=== PATIENT | male | born 1990 | race Caucasian/White ===

== ENCOUNTER 2024-09-05 18:09 | Emergency (ER) | payer OTHER, SELFPAY ==
[2024-09-05 18:35] VITALS: BP 135/88; PULSE 94; TEMP 36.7; O2SAT 99; BMI 24.2
--- NOTE | 2024-09-05 18:45 | XR_ITS ---
The [address] [address] Patient Name: PREETHI LAMAS MRN: [id number] date: 1990 Sex: M Assigned Patient Location: ER Current Patient Location: Accession/Order Number: [id number] Exam Date: 09/05/2024 19:04 Report Date: 09/05/2024 20:14 At the request of: CATALINA CLANCY Procedure: XR hand RT min 3V EXAM: XR hand RT min 3V HISTORY: laceration COMPARISON: None. TECHNIQUE: 3 views of the right hand were obtained. FINDINGS: There is no evidence of an acute fracture or dislocation. The joint spaces are intact. No focal osseous abnormality is identified. Some bandaging and soft tissue laceration is seen along the ulnar aspect of the proximal hand and between the fourth and fifth metacarpal bones. No radiopaque foreign body is identified other than a small amount of debris under the fingernail of the third digit. XR/XR hand RT min 3V IMPRESSION: No acute fracture or dislocation. No significant osseous abnormality. Soft tissue lacerations are seen along the ulnar aspect of the hand. No radiopaque foreign body is seen associated with these lacerations. Electronically authenticated by: SHAKA DAMON Date: 09/05/2024 20:14
--- NOTE | 2024-09-05 18:46 | PC.NURSE ---
Laceration to right hand, well approx. small amount of drainage. Area soaked in hibicleanse.
--- NOTE | 2024-09-05 18:48 | ED_ITS ---
HPI - Wound/Laceration General Chief Complaint: Wound/Laceration Stated Complaint: UE INJURY Time Seen by Provider: 09/05/24 18:42 Source: patient Mode of arrival: walk-in Limitations: no limitations History of Present Illness HPI narrative: Patient is a 34-year-old male who is right-hand dominant who presents to the emergency department for evaluation of a laceration over the dorsum of the right hand. This was sustained just prior to arrival when he was working on a car and dropped a car battery on the dorsum of the hand. Bleeding is well-controlled. No medications taken prior to arrival. He had no other associated injuries. Related Data Home Medications ?Medication ?Instructions ?Recorded ?Confirmed duloxetine 30 mg capsule,delayed 30 mg PO DAILY 09/05/24 09/05/24 release pregabalin 75 mg capsule 75 mg PO Q12H 09/05/24 09/05/24 Previous Rx's ?Medication ?Instructions ?Recorded cephalexin 500 mg capsule 500 mg PO TID 5 days #15 caps 09/05/24 ketorolac 10 mg tablet 10 mg PO TID PRN pain #10 tabs 09/05/24 Allergies Allergy/AdvReac Type Severity Reaction Status Date / Time No Known Drug Allergies Allergy Verified 09/05/24 18:31 Review of Systems ROS Constitutional Denies: fever or chills Ears, nose, mouth, and throat Denies: throat pain, nasal discharge or nasal congestion Respiratory Denies: shortness of breath Gastrointestinal Denies: nausea or vomiting Integumentary/Breast Denies: rash Neurological Denies: numbness in extremities or weakness in extremities Hematologic/Lymphatic Denies: easy bruising or easy bleeding PFSH PFSH Social History Little interest or pleasure in doing things: not at all Feeling down, depressed, or hopeless: not at all Exam Narrative Exam Narrative: Gen.: Awake, alert, in no distress Head: Normocephalic, atraumatic ENT: Moist mucous membranes Respiratory: No respiratory distress Extremities: Patient is able to make a fist, extend and flex all fingers with no deficits in strength. 3 cm laceration noted over the dorsal lateral aspect of the right hand, proximal to the wrist at the ulna. Subcutaneous tissue was visualized with no active bleeding. Minimal visualization of the tendon and the laceration, does not appear completely lacerated. Psych: Normal mood and affect Neuro: No focal neuro deficit Skin: Warm, dry Constitutional Vital Signs, click to edit/add: Last Vital Signs Temp 98.0 F 09/05/24 18:35 Pulse 94 H 09/05/24 18:35 Resp 18 09/05/24 18:35 BP 135/88 09/05/24 18:35 Pulse Ox 99 09/05/24 18:35 O2 Del Method Room Air 09/05/24 18:35 Course Vital Signs Vital signs: Vital Signs Temperature 98.0 F 09/05/24 18:35 Pulse Rate 94 H 09/05/24 18:35 Respiratory Rate 18 09/05/24 18:35 Blood Pressure 135/88 09/05/24 18:35 Pulse Oximetry 99 09/05/24 18:35 Oxygen Delivery Method Room Air 09/05/24 18:35 Temperature 98.0 F 09/05/24 18:35 Pulse Rate 94 H 09/05/24 18:35 Respiratory Rate 18 09/05/24 18:35 Blood Pressure 135/88 09/05/24 18:35 Pulse Oximetry 99 09/05/24 18:35 Oxygen Delivery Method Room Air 09/05/24 18:35 MDM - Wound/Laceration MDM Narrative Medical decision making narrative: X-rays obtained with no evidence of obvious fracture or dislocation. Laceration repaired to the right hand without difficulty. Please see procedure note for details. Patient started on antibiotics and a short course of analgesics for home. Rest, ice, elevate. He is neurovascularly intact at discharge. Laceration repair: Done under sterile conditions. The use of Shur-Clens prep the area. Local injection with lidocaine 1% was used, approximately 6 cc. The wound was irrigated copiously with normal saline. The wound was explored there was no evidence of foreign material. The laceration was approximated with 3-0 nylon. Four simple interrupted sutures were placed. Patient tolerated the procedure well. The patient was neurovascularly intact post. the patient had bacitracin applied to the laceration and a dry sterile dressing was place. The patient will need to follow-up in the next 8-10 days for removal SUPERVISED APC VISIT, PHYSICIAN ATTESTATION: Based on the medical record the care appears appropriate. ? Medical Records Attestation: I reviewed the patient's medical records. Discharge Plan Discharge Chief Complaint: Wound/Laceration Clinical Impression: Contusion of right hand, Laceration of right hand Patient Disposition: Home, Self-Care Time of Disposition Decision: 19:36 Condition: Good Prescriptions / Home Meds: New cephalexin 500 mg capsule 500 mg PO TID 5 Days Qty: 15 0RF ketorolac 10 mg tablet 10 mg PO TID PRN (Reason: pain) Qty: 10 0RF No Action duloxetine 30 mg capsule,delayed release(DR/EC) 30 mg PO DAILY pregabalin 75 mg capsule 75 mg PO Q12H Print Language: [place] Instructions: Laceration (ED), Contusion in Adults (ED) Additional Instructions: Sutures removed in 8-10 days with your doctor Referrals: Yaritza ROCA [Primary Care Provider] - 1 week
[2024-09-05] MEDS: ADACEL DIPH,PERTUSS(ACELL),TET VAC/PF 0.5 ML ADULT SYRINGE IM (19:35)
[2024-09-05] MEDS: BACITRACIN 0.9 GM PACKET 1 PACKET TOPICAL (19:37)
[2024-09-05] MEDS: LIDOCAINE HCL 1% 100 MG/10 ML MDV INJ (19:37)
[2024-09-05] MEDS: CEPHALEXIN 500 MG CAPSULE PO (19:46)
== END 2024-09-05 19:50 | disposition home or self-care (01) ==
PROVIDERS: Emergency Provider Student in an Organized Health Care Education/Training Program; PCP Family Medicine
DX: S61.411A Laceration without foreign body of right hand, initial encounter (principal); S60.221A Contusion of right hand, initial encounter; W22.8XXA Striking against or struck by other objects, initial encounter; Z23 Encounter for immunization
CPT/HCPCS: 12002; 73130; 90471; 90715; 99284